=== PATIENT | male | born 1965 | race Caucasian/White ===

== ENCOUNTER 2018-07-21 07:43 | Inpatient (IN) ==
[2018-07-21] MEDS ORDERED: MORPHINE IV ONE (08:01)
[2018-07-21] MEDS ORDERED: ZOFRAN IV ONE (08:02)
--- NOTE | 2018-07-21 08:08 | PROVIDER DOCUMENTATION ---
HPI-Syncope/Dizziness - General Chief Complaint: Syncope Stated Complaint: SYNCOPE, HIGH BP, LIGHTHEADED Time Seen by Provider: 07/21/18 07:53 Allergies/Adverse Reactions: Patient Allergies Allergy/AdvReac Type Severity Reaction Status Date / Time No Known Allergies Allergy Verified 07/21/18 08:08 Home Medications: Home Medication List Medication Instructions Recorded Confirmed Last Taken Type ATORVAstatin [Lipitor] 40 mg PO DAILY 10/26/14 10/26/14 Unknown History Lisinopril 20 mg PO DAILY 10/26/14 07/21/18 Unknown History Sitagliptin Phos/Metformin HCl 1 tab PO BID 10/26/14 10/26/14 Unknown History [Janumet 50-500 mg Tablet] Dapagliflozin Propanediol [Farxiga] 10 mg PO DAILY 07/21/18 07/21/18 Unknown History Insulin Glargine/Lixisenatide 50 units SQ DAILY 07/21/18 07/21/18 Unknown History [Soliqua 100 Unit-33 Mcg/ml Pen] Omeprazole 40 mg PO DAILY 07/21/18 07/21/18 Unknown History Paroxetine [Paxil] 20 mg PO DAILY 07/21/18 07/21/18 Unknown History ROSUVAstatin [Crestor] 20 mg PO QHS 07/21/18 07/21/18 Unknown History Sildenafil [Revatio] 20 mg PO PRN PRN 07/21/18 07/21/18 Unknown History Tamsulosin [Flomax] 0.4 mg PO DAILY 07/21/18 07/21/18 Unknown History Ticagrelor [Brilinta] 90 mg PO BID 07/21/18 07/21/18 Unknown History - History of Present Illness-Syncope/Dizzy Nature of Presenting Problem: Patient reports losing consciousness, falling and hitting the right side of his abd and chest against his sink. States he has some left arm tingling, but no numbness or weakness. States that he's had the arm tingling on and off since yesterday. Denies any current chest pain, shortness of breath or weakness. Complains of right rib and flank pain. Prior Episodes: reports: no prior history Context: reports: unknown, lost consciousness, collapsed Similar symptoms previously: reports: tests (recent cath with mild CAD amenable to medical management per ) - Dizziness Modifying Factors: improves with: changing position Patient usually:: reports: walks without assistance Review of Systems - Adult - REVIEW OF SYSTEMS - ADULT Constitutional: reports: no symptoms reported Eyes: reports: no symptoms reported Ears, Nose, Mouth & Throat: reports: no symptoms reported Cardiovascular: reports: see HPI Respiratory: reports: no symptoms reported Gastrointestinal: reports: no symptoms reported Genitourinary: reports: no symptoms reported Musculoskeletal: reports: see HPI Integumentary: reports: no symptoms reported Neurological: reports: see HPI Psychiatric: reports: no symptoms reported Endocrine: reports: no symptoms reported Hematologic/Lymphatic: reports: no symptoms reported Allergic/Immunologic: reports: no symptoms reported All Other Systems: Reviewed and Negative Past History - Adult - PAST MEDICAL HISTORY-ADULT Review of Records: reports: Old Records Reviewed Major Childhood Illnesses: reports: denies history Cardiovascular: reports: HTN, hyperlipidemia Endocrine/Immune: reports: Diabetes - PRIOR SURGERIES/PROCEDURES Surgical/Procedure History: reports: tonsillectomy, back/neck - IMMUNIZATION STATUS Childhood Immunizations: See Nurse Assessment Flu Vaccine: See Nurse Assessment Physical Exam-General - PHYSICAL EXAM-ADULT Initial Vital Signs Reviewed: Yes - CONSTITUTIONAL General Appearance: mild distress (due to chest wall pain) - EYES Eyes: PERRL/EOMI, pink conjunctivae - HEAD, EARS, NOSE, MOUTH & THROAT HENMT: normocephalic/atraumatic, moist mucous membranes, normal ENT inspection - NECK Neck: non-tender, full range of motion - RESPIRATORY Respiratory: lungs clear, normal breath sounds, no respiratory distress, pain on inspiration (right chest wal), other (right lower chest wall tenderness). negative: chest non-tender - CARDIOVASCULAR Cardiovascular: normal peripheral pulses, regular rate, rhythm, no edema - GASTROINTESTINAL (ABDOMEN) Abdominal Exam: normal bowel sounds, tenderness (RUQ). 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 as tested, grossly normal, no motor/sensory deficits, abnormal cerebellar tests, abnormal plant protection superintendent II-XII - PSYCHIATRIC Psych/Mental Status: normal mood/affect, normal thought content, normal thought process, oriented x 3 Progress - PLAN OF CARE/RESULTS Progress/Plan/Lab Results: Vital Signs - 8 hr 07/21/18 07:46 07/21/18 07:59 07/21/18 08:00 Temperature 98.6 F Pulse Rate 89 80 72 Respiratory Rate 20 18 24 Blood Pressure 140/96 144/105 O2 Sat by Pulse Oximetry 92 L 99 100 07/21/18 08:40 Temperature Pulse Rate 75 Respiratory Rate 17 Blood Pressure O2 Sat by Pulse Oximetry 95 Laboratory Results - last 24 hr 07/21/18 07/21/18 07/21/18 08:02 08:04 08:04 WBC 8.26 RBC 5.71 Hgb 16.9 Hct 47.7 MCV 83.5 MCH 29.6 MCHC 35.4 RDW Std Deviation 13.2 Plt Count 205 MPV 9.8 Immature Gran % (Auto) 0.2 Neut % (Auto) 71.6 Lymph % (Auto) 15.6 L [place] % (Auto) 9.9 H Eos % (Auto) 2.5 Baso % (Auto) 0.2 Immature Gran # (Auto) 0.02 Neut # (Auto) 5.90 Lymph # (Auto) 1.29 [place] # (Auto) 0.82 H Eos # (Auto) 0.21 Baso # (Auto) 0.02 PT INR PTT (Actin FS) Sodium 138 Potassium 4.2 Chloride 100 Carbon Dioxide 24 L Anion Gap 14 BUN 19 Creatinine 1.1 Estimated GFR/1.73 m2 > 60 BUN/Creatinine Ratio 17 Glucose 191 H POC Glucose 185 H Calculated Osmolality 283 Calcium 9.0 Total Bilirubin 0.49 AST 25 ALT 19 Alkaline Phosphatase 95 Creatine Kinase 155 Troponin T Total Protein 6.9 Albumin 4.7 Globulin 2.2 Albumin/Globulin Ratio 2.1 Urine Source Urine Color Urine Turbidity Urine pH Ur Specific [place] Urine Protein Ur Glucose (Stick) Ur Ketones (Stick) Urine Blood Urine Nitrite Urine Bilirubin Urobilinogen Dipstick Urine Leukocytes Urine WBC (Auto) Urine RBC (Auto) U Epithel Cells (Auto) Urine Bacteria (Auto) 07/21/18 07/21/18 07/21/18 08:04 08:04 08:38 WBC RBC Hgb Hct MCV MCH MCHC RDW Std Deviation Plt Count MPV Immature Gran % (Auto) Neut % (Auto) Lymph % (Auto) [place] % (Auto) Eos % (Auto) Baso % (Auto) Immature Gran # (Auto) Neut # (Auto) Lymph # (Auto) [place] # (Auto) Eos # (Auto) Baso # (Auto) PT 13.4 INR 0.95 PTT (Actin FS) 26.9 Sodium Potassium Chloride Carbon Dioxide Anion Gap BUN Creatinine Estimated GFR/1.73 m2 BUN/Creatinine Ratio Glucose POC Glucose Calculated Osmolality Calcium Total Bilirubin AST ALT Alkaline Phosphatase Creatine Kinase Troponin T 0.216 H Total Protein Albumin Globulin Albumin/Globulin Ratio Urine Source CLEAN CATCH Urine Color YELLOW Urine Turbidity CLEAR Urine pH 7.0 Ur Specific [place] 1.017 Urine Protein NEGATIVE Ur Glucose (Stick) >1000 A Ur Ketones (Stick) 10 A Urine Blood NEGATIVE Urine Nitrite NEGATIVE Urine Bilirubin NEGATIVE Urobilinogen Dipstick NORMAL Urine Leukocytes NEGATIVE Urine WBC (Auto) <10 Urine RBC (Auto) <10 U Epithel Cells (Auto) <10 Urine Bacteria (Auto) NEGATIVE Orders Category Date Time Status CHEST-2 VIEWS [RAD] Stat Exams 07/21/18 08:[address] HEAD/C-SPINE W/O CONTRAST [CT] Stat Exams 07/21/18 08:[address] THORAX/ABD/PELVIS W/CON [CT] Stat Exams 07/21/18 08:31 Completed CBC WITH ELECTRONIC DIFF [HEME] Stat Lab 07/21/18 08:04 Completed CK PROFILE [SP CHEM] Stat Lab 07/21/18 08:04 Completed COMPREHENSIVE METABOLIC PANEL [CHEM] Stat Lab 07/21/18 08:04 Completed PROTIME WITH INR [COAG] Stat Lab 07/21/18 08:04 Completed PTT [COAG] Stat Lab 07/21/18 08:04 Completed TROPONIN T Stat Lab 07/21/18 08:04 Completed URINALYSIS W/POSS RFLX CULT [URINALYSIS] Stat Lab 07/21/18 08:38 Completed Aspirin Med 07/21/18 10:05 Discontinued 325 mg PO NOW ONE Morphine Med 07/21/18 08:01 Discontinued 4 mg IV NOW ONE Ondansetron [Zofran] Med 07/21/18 08:02 Discontinued 4 mg IV NOW ONE Result Diagrams: 07/21/18 08:04 07/21/18 08:04 - REASSESSMENT Reassessment #1 Time Reassessed: 10:17 Status: improving - EKG 1 Time of EKG reading by physician:: 08:08 EKG Interpretation (*Must complete 3 of following elements*): Normal Rate: 70 Rhythm: SR ST Wave: normal Prior EKG Comparison: unchanged from prior (06/07/2017) - CONSULTS/PCP/HOSPITALIST Notification Time Discussed: 10:00 (Discussed with cardiology and with hospitalist with plan for hospitalist admission) Consult Disposition: Admit (Discussed with patient and family option of admission here or transfer to [place]. They preferred to remain here.) Departure - Departure Date of Disposition Decision: 07/21/18 Time of Disposition Decision: 10:24 DIAGNOSIS: Syncope and collapse, Elevated troponin Disposition: ADMITTED INPATIENT 09 Certified Medical Emergency: Emergent Condition: Serious Referrals and Follow-Ups: None,PCP [NON-STAFF PROVIDER] - - Critical Care Note This patient required my direct & personal management of CC.: Yes Total Time (mins): 31 Critical Care Statement: This patient required my direct personal management to treat or rule out processes, the absence of which, could potentiallly result in sudden, clinically significant life or limb threatening deterioration. Attestation - Physician/ LALITA Attestation Patient care was provided by Advanced Practice Provider:: No The physician spent face to face time with patient:: Yes Advanced Practice Provider documentation review:: Supervising physician onsite and consulted in the evaluation and care of this patient. The physician did have a face to face encounter with the patient.
[2018-07-21 08:19] LABS: BASO# 0.02 X1000 (0.0-0.2); BASO% 0.2 % (0.0-0.8); EOS# 0.21 X1000 (0.0-0.7); EOS% 2.5 % (0.0-10.0); HEMATOCRIT 47.7 % (42.0-52.0); HEMOGLOBIN 16.9 g/dL (14.0-18.0); IMM GRAN# 0.02 X1000 (0.0-0.04); IMM GRAN% 0.2 % (0.0-0.5); LYMPH# 1.29 X1000 (1.2-3.4); LYMPH% 15.6 % (20.5-51.1); MCH 29.6 PG (27-31); MCHC 35.4 g/dL (33-37); MCV 83.5 FL (81-99); MONO# 0.82 X1000 (0.11-0.59); MONO% 9.9 % (1.7-9.3); MPV 9.8 FL (7.4-10.4); NEUT% 71.6 % (42.2-75.2); PLT 205 X1000 (130-400); RBC 5.71 XMIL (4.7-6.1); RDW 13.2 % (11.5-14.5); WBC 8.26 X1000 (4.8-10.8)
[2018-07-21 08:26] LABS: INR 0.95; PROTIME 13.4 Seconds (11.0-16.0)
[2018-07-21 08:27] LABS: PTT 26.9 Seconds (22.3-41.8)
[2018-07-21 08:38] LABS: AGAP 14; ALB/GLOB RATIO 2.1; ALBUMIN 4.7 g/dL (3.5-5.0); ALKALINE PHOSPHATASE 95 U/L (32-122); BUN 19 mg/dL (8-22); CHLORIDE 100 mmol/L (98-107); CK PROFILE 155 U/L (24-204); COSMO 283; CREATININE 1.1 mg/dL (0.7-1.2); ESTIMATED GFR > 60; GLUCOSE 191 mg/dL (70-104); GOT 25 U/L (10-34); GPT 19 U/L (10-44); POTASSIUM 4.2 mmol/L (3.5-5.1); SODIUM 138 mmol/L (136-145); TCO2 24 mmol/L (25-35); TOTAL BILIRUBIN 0.49 mg/dL (0.20-1.00); TOTAL PROTEIN 6.9 g/dL (6.3-8.3)
[2018-07-21 08:48] LABS: URINE SOURCE CLEAN CATCH
[2018-07-21 08:52] LABS: BILIRUBIN URINE NEGATIVE (NEGATIVE); BLOOD URINE NEGATIVE (NEGATIVE); COLOR YELLOW; GLUCOSE URINE >1000 mg/dL (NEGATIVE); KETONE URINE 10 mg/dL (NEGATIVE); LEUKOCYTES URINE NEGATIVE (NEGATIVE); NITRITE URINE NEGATIVE (NEGATIVE); PROTEIN URINE NEGATIVE (NEGATIVE); SP GRAVITY URINE 1.017; TURBIDITY URINE CLEAR (CLEAR); UR EPITHELIAL CELLS <10 /HPF (<10); URINE BACTERIA NEGATIVE /HPF; URINE RBC <10 /HPF (<10); URINE WBC <10 /HPF (<10); UROBILINOGEN URINE NORMAL (NORMAL)
--- NOTE | 2018-07-21 09:28 | Diag Imaging Result Doc PS360 ---
EXAM: CT HEAD/C-SPINE W/O CONTRAST - 07/21/2018 HISTORY: fall TECHNIQUE: CT head and cervical spine without contrast COMPARISON: None. FINDINGS: CT head: There is no evidence of intracranial hemorrhage, mass effect, midline shift, or hydrocephalus. There is no evidence of infarct, although acute infarcts may not be immediately visible. There is no evidence of skull fracture. CT cervical spine: There are postsurgical changes of anterior fusion, with metallic fusion hardware, and C5-C6-C7. There is posterior bony hypertrophy with mild spinal stenosis at C5-6 and C6-7. There are degenerative changes with large anterior osteophytes at C4-5. There are degenerative changes at the atlantoaxial articulation. There is no fracture, subluxation, or precervical soft tissue swelling identified. IMPRESSION: CT head: No visible acute intracranial abnormality. No evidence of intracranial injury. CT cervical spine: Postsurgical changes and degenerative changes. No evidence of fracture or subluxation. This exam was performed using automated exposure control, adjustment of mA or kV according to patient size, and/or use of iterative reconstruction technique. Electronically signed by Jovany Boogie 07/21/2018 9:26 AM
--- NOTE | 2018-07-21 09:39 | Diag Imaging Result Doc PS360 ---
EXAM: CHEST-2 VIEWS 07/21/2018 HISTORY: short of breath TECHNIQUE: PA and lateral chest COMMENT: The inspiration is less optimal than on 10/26/2014. Otherwise are has been no appreciable change. IMPRESSION: Stable chest. Electronically signed by Jamari Reyes 07/21/2018 9:37 AM
--- NOTE | 2018-07-21 09:39 | Diag Imaging Result Doc PS360 ---
CT THORAX/ABD/PELVIS W/CON - 07/21/2018 INDICATION: blunt trauma COMPARISON: 12/31/2010 FINDINGS: CHEST: Heart and great vessels are normal. The lungs are clear. No adenopathy. There is moderate degeneration throughout the thoracic spine. No acute bony lesions. Abdomen pelvis: The liver, gallbladder, spleen, pancreas, adrenals, and kidneys are normal. No bowel obstruction or inflammation. Normal appendix. No free air or free fluid. Urinary bladder, prostate, and rectum are normal. There is moderate degeneration of the lumbar spine. No acute bony lesions. IMPRESSION: No acute injury. This exam was performed using automated exposure control, adjustment of mA or kV according to patient size, and/or use of iterative reconstruction technique Electronically signed by Edgar Caro 07/21/2018 9:37 AM
[2018-07-21] MEDS ORDERED: ASPIRIN PO ONE (10:05)
[2018-07-21] MEDS ORDERED: HUMALOG SUBQ SCH (11:21)
[2018-07-21] MEDS ORDERED: TYLENOL PO PRN (11:21)
[2018-07-21] MEDS ORDERED: ZOFRAN IV PRN (11:21)
--- NOTE | 2018-07-21 11:39 | EKG Report ---
Test Performed on : 07/21/2018 07:55:14 AM Test Reason : ED. No order in [place] Blood Pressure : / mmHG Vent. Rate : 070 BPM Atrial Rate : 070 BPM P-R Int : 150 ms QRS Dur : 080 ms QT Int : 376 ms P-R-T Axes : 031 066 048 degrees QTc Int : 406 ms Normal sinus rhythm. Normal ECG No previous ECGs available Unconfirmed Result
[2018-07-21] MEDS ORDERED: PRINIVIL PO SCH (12:15)
[2018-07-21] MEDS ORDERED: LOVENOX SUBQ SCH (12:15)
[2018-07-21] MEDS ORDERED: CRESTOR PO SCH (12:15)
--- NOTE | 2018-07-21 13:10 | HISTORY AND PHYSICAL ---
[id number] encounter. HISTORY OF PRESENT ILLNESS: Mr. Eugenio Servin is a 52-year-old male who has a history of hypertension, diabetes mellitus, hyperlipidemia as well as a family history of heart disease. Presents to the hospital because of a syncopal episode which occurred prior to presentation and he ended of having blunt trauma to the right side of his trunk. He also describes having numbness in the left upper extremity. During evaluation in the ER, he was found to have a troponin level of 0.216. The patient admits to having history of a coronary lesion of at least 70% blockage in the past. PHYSICAL EXAMINATION: VITAL SIGNS: Temperature 98.6 degrees, pulse is 89, respiratory rate 20, blood pressure 143/96. Oxygen saturation 92%. HEENT: Atraumatic, normocephalic. He is anicteric. Extraocular movements intact. No oral lesions noted. NECK: No lymphadenopathy or thyromegaly. CARDIOVASCULAR SYSTEM: S1, S2. RESPIRATORY SYSTEM: Has evidence of good air entry bilaterally. ABDOMEN: Soft. There is some vague tenderness lower right portion of the abdomen. EXTREMITIES: No evidence of edema. CENTRAL NERVOUS SYSTEM: No obvious focal deficit noted. LABORATORY DATA: Troponin is 0.216. IMPRESSION: 1. Probable non ST elevation myocardial infarction. 2. Syncope. 3. Diabetes. 4. Hypertension. 5. Hyperlipidemia. 6. Family history of heart disease. PLAN: The patient has already been evaluated by the Cardiology Team and the plan is to have the patient transferred to [facility] for further management. cc: Cleve Ruiz MD
--- NOTE | 2018-07-21 13:17 | HISTORY AND PHYSICAL ---
PRIMARY CARE PROVIDER: Marcia MACEDO, in [place]. ROPE TOW OPERATOR: Dr. Phillips in [place]. CHIEF COMPLAINT: Passed out after urinating. HISTORY OF PRESENT ILLNESS: Mr. Servin is a 52-year-old, male who carries a past medical history of hypertension, hyperlipidemia, diabetes mellitus, GERD, situational depression, BPH, coronary artery disease, on Brilinta since August 2016 after he had an arteriogram that showed some mild blockage per their report at the bottom of the heart, low testosterone. He takes testosterone shots every 2 weeks. He reported a syncopal episode this a.m. He got up to urinate and after he was done, when he spun around, he became fuzzy-headed. His head started buzzing. He went to reach for the counter and missed. He states everything went black. He never lost full consciousness. The dizziness lasted for about 10 or 15 minutes. He got up, went to the couch, and did not move. He became short of breath as well as profusely diaphoretic after the episode. He complained of left arm tingling intermittently since yesterday, as well as feeling "cold as ice and feeling cruddy". He also complained of bilateral jaw tightness that he was having yesterday as well as today in the ED, but this has been ongoing for quite some time as well. He also had some neck pain that radiated down to his left arm last night. He denied any chest pain. He states he has never had a heart attack before so he could not describe it. He states he always aches all over. He denied any nausea, vomiting, diarrhea, fever, chills, cough. He does have some seasonal allergies. In the ED, he was found to have an elevated troponin at 0.216, and hyperglycemia. All other laboratory data was essentially unremarkable. We are waiting for repeat troponins. His chest, abdomen, pelvis, head, and cervical spine CT, as well as chest x-ray were all unremarkable. His EKG is currently pending. We will admit him to medical telemetry. Consult cardiology. They are going to set him up for a left heart catheterization. PAST MEDICAL HISTORY: 1. Hypertension. 2. Diabetes. 3. Hyperlipidemia. 4. Benign prostatic hypertrophy. 5. Low testosterone. 6. Situational depression. 7. GERD. PAST SURGICAL HISTORY: 1. Neck surgery in 2011. 2. Arteriogram in August 2016. 3. Tonsillectomy in the first grade. 4. metal taken out of thumb. FAMILY HISTORY: 1. Father had 4 MIs. He at the age of 82 from lung cancer. 2. A sister with 3 MIs who at the age of 43 of an unknown cause. 3. Mother of a massive [place] in her 80s. 4. Brother had 1 [place]. He of cancer, some type of tumor in his back that spread everywhere. 5. Sister with YO. SOCIAL HISTORY: He is . No alcohol, tobacco, or illicit drug use. ALLERGIES: No known drug allergies. HOME MEDICATIONS: Please see medication reconciliation. Not all medications have been reconciled. PHYSICAL EXAMINATION: VITAL SIGNS: Temperature is 98.6 degrees, heart rate 80, respirations 18, blood pressure 144/105, O2 is 100% on 2 L nasal cannula. GENERAL: Mr. Servin is a pleasant, 52-year-old, male who is sitting up in the bed, in no acute distress. HEENT: Atraumatic, normocephalic. PERRL. NECK: Supple. Trachea midline. CARDIOVASCULAR: S1, S2 appreciated. No murmurs, gallops, rubs noted. RESPIRATORY: Lungs sound clear bilaterally. GI: Soft. It is tender in the rib area on the right side. Positive bowel sounds in 4 quadrants. EXTREMITIES: Lower extremities are negative for edema. No signs of clubbing or cyanosis. NEUROLOGIC: No focal deficits noted. DIAGNOSTIC DATA: 1. Chest, abdomen, and pelvis. No acute injury. 2. Head and cervical spine. No visible acute intracranial pathology or injury. Cervical spine has postsurgical changes and degenerative changes. No evidence of fracture or subluxation. 3. Chest CT stable. 4. EKG was currently pending. 5. Pending carotid Dopplers and echocardiogram. LABORATORY DATA: White count 8, hemoglobin and hematocrit 16 and 47, platelet count is 205,000. Sodium 138, potassium 4.2, BUN 19, creatinine 1.1, blood glucose is 191. CK 155, troponin 0.216. Urinalysis was negative for bacteria, negative for nitrites, 1000 glucose, 10 ketones. ASSESSMENT AND PLAN: 1. Non-ST elevated myocardial infarction. We will continue to trend his cardiac enzymes. Consult Dr. Howard of cardiology. Continue to trend his cardiac enzymes. We will check a lipid profile. Make him nothing per oral after midnight. Cardiology will set him up for a left heart catheterization in the morning. Continue on anticoagulation. We will converse with Dr. Howard to see if he wants to continue on the Brilinta or just do the aspirin. We will continue on a statin. Brilinta or aspirin versus full-dose Lovenox. 2. Syncopal episode at home. Patient's vision went dark. He did not ever lose any full consciousness. He was still aware of his surroundings. We will check a carotid Doppler. His head CT is currently negative. 3. Diabetes mellitus type 2. We will continue with sliding scale and pattern blood sugars. 4. Hypertension. We will continue with home medications. 5. Gastroesophageal reflux disease. We will continue with proton pump inhibitor. 6. Situational depression. We will continue with Paxil. 7. Benign prostatic hypertrophy. We will continue with Flomax. 8. Low testosterone. Patient does take testosterone shots over 2 weeks. Aware. 9. Further recommendation to follow physician evaluation, laboratory and diagnostic data. Dictated by HELLEN Peng for Cleve Ruiz MD ADDENDUM: Cards in to see patient after I request for ED Physician to contact cardiology and notify of patient. Cards recommendations HH transfer for [facility]. cc: MD Roberto Mejia MD Ashley Drake Mir K. Varquez, MD MTDD
[2018-07-21 13:38] LABS: CHOLESTEROL 103 mg/dL (0-200); HDL 33 mg/dL (35-55); LDL 57 mg/dL; TRIGLYCERIDES 67 mg/dL (39-160); VLDL 13 mg/dL
[2018-07-21 14:39] VITALS: BP 123/78
[2018-07-21] MEDS ORDERED: LIPITOR PO SCH (21:00)
--- NOTE | 2018-07-21 22:55 | ECHO REPORT ---
ORDER DATE: 07/21/2018 MEASUREMENTS: Septal thickness 1.4, left ventricular internal diameter diastole 3.6, posterior wall thickness 1.4, aortic root 4.4, left atrium 3.1. SUMMARY: 1. Fair quality study. 2. Aortic valve is trileaflet and opens normally on 2-dimensional images. Peak gradient across the aortic valve is approximately 14 mmHg. Mitral, tricuspid and pulmonic valves are without evidence of structural abnormality. Trace tricuspid regurgitation is demonstrated. Aortic root is mildly to moderately enlarged. 3. Normal left ventricular chamber size with moderate concentric left hypertrophy is demonstrated. Estimated left ejection fraction appears to be at least 70% with left ventricle appearing somewhat hyperdynamic. No regional wall motion abnormality is evident. Doppler demonstrates a mild gradient of approximately 10 mm in mid left ventricle during systole. With Valsalva, this increases to 46 mmHg. Doppler also demonstrates grade 1 left ventricular diastolic dysfunction. The left atrium is normal in size. The right atrium and right ventricle are normal size with grossly preserved right ventricular systolic function. 4. No pericardial effusion. 5. Appearance of inferior vena cava suggests normal central venous pressure. CONCLUSIONS: 1. Mild to moderate aortic root enlargement. 2. Moderate concentric left ventricular hypertrophy with left ventricle somewhat hyperdynamic with estimated left ejection fraction at least 70%. 3. Dynamic left ventricular outflow tract obstruction physiology demonstrated. 4. Grade 1 left ventricular diastolic dysfunction. cc: Prem Batista MD
[2018-07-22] MEDS ORDERED: ASPIRIN PO SCH (09:00)
--- NOTE | 2018-07-22 10:34 | Carotid Study ---
DATE: 07/21/2018 PROCEDURE: Bilateral carotid duplex. REQUESTING PHYSICIAN: Norberto Pride MD INTERPRETING PHYSICIAN: Phylicia Russell MD TECH: Benson Gold [facility] INDICATIONS: Syncope. OBSERVED DATA RIGHT LEFT Brachial Blood Pressure Carotid Pulse Bruits: Carotid/Sub DIAGRAM OF ULTRASOUND IMAGING R L RIGHT INT EXT INT EXT LEFT Júnior (cm/s) Júnior (cm/s) Subclavian 83/0 Subclavian 95/0 CCA Proximal 63/12 CCA Proximal 82/13 CCA Distal 51/15 CCA Distal 67/14 Bulb 51/14 Bulb 47/13 ICA Proximal 28/12 ICA Proximal 51/17 ICA Mid 54/22 ICA Mid 72/28 ICA Distal 59/23 ICA Distal 76/28 ECA 104/15 ECA 120/20 Vertebral 27/9 A Vertebral 44/15 A ICA/CCA Ratio 0.93 ICA/CCA Ratio 0.93 % Stenosis 0%-39% % Stenosis 0%-39% FINDINGS: No significant atherosclerotic change is noted in the bilateral carotid artery system. Overall normal appearing study. cc: Phylicia Russell MD
== END 2018-07-21 14:37 | disposition short-term general hospital (02) | DRG 282 ==
LOC: ED 07:43 → EDIPHOLD 07:44 → UNDODISIN 14:31 → EDIPHOLD 14:36
PROVIDERS: ATTEND Internal Medicine
CPT/HCPCS: 70450; 71020; 71046; 71260; 72125; 74177; 80053; 80061; 81001; 82550; 82948; 84484; 85025; 85610; 85730; 93005; 93306; 93880; A9270; J1650; J2270; J2405; Q9967; XXXXX

== ENCOUNTER 2018-10-26 13:50 | Observation (INO) ==
[2018-10-26] MEDS ORDERED: ASPIRIN PR ONE (14:00)
[2018-10-26] MEDS ORDERED: ASPIRIN PO ONE (14:00)
--- NOTE | 2018-10-26 14:06 | EKG Report ---
Test Performed on : 10/26/2018 2:01:10 PM Test Reason : SMOTHERING Blood Pressure : / mmHG Vent. Rate : 086 BPM Atrial Rate : 086 BPM P-R Int : 144 ms QRS Dur : 088 ms QT Int : 364 ms P-R-T Axes : 028 064 046 degrees QTc Int : 435 ms Normal sinus rhythm. Normal ECG When compared with ECG of 21-JUL-2018 07:55, No significant change was found Unconfirmed Result
[2018-10-26 14:22] LABS: BASO# 0.04 X1000 (0.0-0.2); BASO% 0.6 % (0.0-0.8); EOS# 0.38 X1000 (0.0-0.7); EOS% 5.8 % (0.0-10.0); HEMATOCRIT 46.7 % (42.0-52.0); HEMOGLOBIN 16.8 g/dL (14.0-18.0); LYMPH# 1.68 X1000 (1.2-3.4); LYMPH% 25.6 % (20.5-51.1); MCH 29.9 PG (27-31); MCV 83.2 FL (81-99); MONO# 0.81 X1000 (0.11-0.59); MONO% 12.3 % (1.7-9.3); MPV 10.1 FL (7.4-10.4); NEUT# 3.65 X1000 (1.4-6.5); NEUT% 55.7 % (42.2-75.2); PLT 176 X1000 (130-400); RBC 5.61 XMIL (4.7-6.1); RDW 13.9 % (11.5-14.5); WBC 6.56 X1000 (4.8-10.8)
--- NOTE | 2018-10-26 14:23 | Diag Imaging Result Doc PS360 ---
EXAM: CHEST-2 VIEWS 10/26/2018 HISTORY: "SMOTHERING" TECHNIQUE: PA and lateral chest COMMENT: There is no evidence of acute cardiac or pulmonary disease. Compared to 07/21/2018 there has been no significant change. IMPRESSION: No evidence of acute disease. Electronically signed by Jamari Reyes 10/26/2018 2:21 PM
[2018-10-26 14:41] LABS: INR 1.08; PROTIME 14.1 Seconds (11.0-16.0)
[2018-10-26 14:42] LABS: PTT 29.3 Seconds (22.3-41.8)
[2018-10-26 14:51] LABS: AGAP 15; ALB/GLOB RATIO 2.5; ALBUMIN 4.8 g/dL (3.5-5.0); ALKALINE PHOSPHATASE 76 U/L (32-122); BUN 15 mg/dL (8-22); CALCIUM 9.2 mg/dL (8.8-10.2); CHLORIDE 98 mmol/L (98-107); CK PROFILE 176 U/L (24-204); COSMO 268; ESTIMATED GFR > 60; GLUCOSE 154 mg/dL (70-104); GOT 20 U/L (10-34); GPT 23 U/L (10-44); POTASSIUM 4.1 mmol/L (3.5-5.1); SODIUM 132 mmol/L (136-145); TCO2 19 mmol/L (25-35); TOTAL BILIRUBIN 0.55 mg/dL (0.20-1.00); TOTAL PROTEIN 6.7 g/dL (6.3-8.3)
[2018-10-26 15:34] LABS: MAGNESIUM 1.8 mg/dL (1.5-2.7)
--- NOTE | 2018-10-26 20:11 | PROVIDER DOCUMENTATION ---
HPI-General Adult - General Chief Complaint: Abdominal Pain Stated Complaint: DR BURTON - NO APPETITE, NAUSEA, SOB Time Seen by Provider: 10/26/18 14:36 Source: patient, family Allergies/Adverse Reactions: Patient Allergies Allergy/AdvReac Type Severity Reaction Status Date / Time No Known Allergies Allergy Verified 10/26/18 16:18 Home Medications: Home Medication List Medication Instructions Recorded Confirmed Last Taken Type ATORVAstatin [Lipitor] 40 mg PO DAILY 10/26/14 10/26/14 Unknown History Lisinopril 20 mg PO DAILY 10/26/14 07/21/18 Unknown History Sitagliptin Phos/Metformin HCl 1 tab PO BID 10/26/14 10/26/14 Unknown History [Janumet 50-500 mg Tablet] Dapagliflozin Propanediol [Farxiga] 10 mg PO DAILY 07/21/18 07/21/18 Unknown His tory Insulin Glargine/Lixisenatide 50 units SQ DAILY 07/21/18 07/21/18 Unknown History [Soliqua 100 Unit-33 Mcg/ml Pen] Omeprazole 40 mg PO DAILY 07/21/18 07/21/18 Unknown History Paroxetine [Paxil] 20 mg PO DAILY 07/21/18 07/21/18 Unknown History ROSUVAstatin [Crestor] 20 mg PO QHS 07/21/18 07/21/18 Unknown History Sildenafil [Revatio] 20 mg PO PRN PRN 07/21/18 07/21/18 Unknown History Tamsulosin [Flomax] 0.4 mg PO DAILY 07/21/18 07/21/18 Unknown History Ticagrelor [Brilinta] 90 mg PO BID 07/21/18 07/21/18 Unknown History - History of Present Illness -Gen Adult Nature of Presenting Problems: This is a 52 yo male with PMH of [place] in July presents with CC of upper abominal pain and chest pain similar to previous [place]. The patient reports that yesterday he was light headed and had some blurred vision. The patient also reports that today he felt nauseated and felt pain in his left upper abdomen and chest that was the same as his previous [place]. Location of Pain/Injury: reports: chest, abdomen Pain Radiation: reports: chest Quality of Pain: reports: pressure Onset/Duration: reports: 24 hours ago Timing: reports: still present Context/Activities at Onset: reports: other (worse with walking around) Review of Systems - Adult - REVIEW OF SYSTEMS - ADULT Constitutional: denies: fever Eyes: reports: blurred vision Ears, Nose, Mouth & Throat: denies: throat pain Cardiovascular: reports: chest pain Respiratory: denies: shortness of breath Gastrointestinal: reports: abdominal pain Genitourinary: denies: dysuria Musculoskeletal: denies: back pain Neurological: reports: headache/migraines Hematologic/Lymphatic: reports: other (bruise on arm with some bleeding) Allergic/Immunologic: reports: other (no allergies) Past History - Adult - PAST MEDICAL HISTORY-ADULT Review of Records: reports: Old Records Reviewed Major Childhood Illnesses: reports: denies history Cardiovascular: reports: HTN, hyperlipidemia Endocrine/Immune: reports: Diabetes - PRIOR SURGERIES/PROCEDURES Surgical/Procedure History: reports: tonsillectomy, back/neck - IMMUNIZATION STATUS Childhood Immunizations: See Nurse Assessment Flu Vaccine: See Nurse Assessment - FAMILY HISTORY Family History: diabetes, cancer, other (CAD) - SOCIAL HISTORY Smoking: chew Physical Exam-General - PHYSICAL EXAM-ADULT Exam Limited by: Obesity Initial Vital Signs Reviewed: Yes - CONSTITUTIONAL General Appearance: appears well, alert, no apparent distress - HEAD, EARS, NOSE, MOUTH & THROAT HENMT: normocephalic/atraumatic - RESPIRATORY Respiratory: chest non-tender, other (Left Lung clear, very slight rales noted in the RLL) - CARDIOVASCULAR Cardiovascular: regular rate, rhythm, no edema - GASTROINTESTINAL (ABDOMEN) Abdominal Exam: distended, guarding, tenderness - SKIN Integumentary: normal color - NEUROLOGIC Neurologic: grossly normal - PSYCHIATRIC Psych/Mental Status: normal mood/affect Progress - PLAN OF CARE/RESULTS Progress/Plan/Lab Results: Vital Signs - 8 hr 10/26/18 13:53 10/26/18 16:17 Temperature 97.5 F L 98.2 F Pulse Rate 92 H 99 H Respiratory Rate 18 18 Blood Pressure 125/84 114/75 O2 Sat by Pulse Oximetry 95 96 Laboratory Results - last 24 hr 10/26/18 10/26/18 10/26/18 14:04 14:04 14:04 WBC 6.56 RBC 5.61 Hgb 16.8 Hct 46.7 MCV 83.2 MCH 29.9 MCHC 36.0 RDW Std Deviation 13.9 Plt Count 176 MPV 10.1 Immature Gran % (Auto) 0.0 Neut % (Auto) 55.7 Lymph % (Auto) 25.6 [place] % (Auto) 12.3 H Eos % (Auto) 5.8 Baso % (Auto) 0.6 Immature Gran # (Auto) 0.00 Neut # (Auto) 3.65 Lymph # (Auto) 1.68 [place] # (Auto) 0.81 H Eos # (Auto) 0.38 Baso # (Auto) 0.04 PT INR PTT (Actin FS) Sodium 132 L Potassium 4.1 Chloride 98 Carbon Dioxide 19 L Anion Gap 15 BUN 15 Creatinine 1.0 Estimated GFR/1.73 m2 > 60 BUN/Creatinine Ratio 15 Glucose 154 H Calculated Osmolality 268 Calcium 9.2 Magnesium Total Bilirubin 0.55 AST 20 ALT 23 Alkaline Phosphatase 76 Creatine Kinase 176 Troponin T [id number] Pept 6 Total Protein 6.7 Albumin 4.8 Globulin 1.9 Albumin/Globulin Ratio 2.5 Amylase Lipase 10/26/18 10/26/18 10/26/18 14:04 14:04 14:04 WBC RBC Hgb Hct MCV MCH MCHC RDW Std Deviation Plt Count MPV Immature Gran % (Auto) Neut % (Auto) Lymph % (Auto) [place] % (Auto) Eos % (Auto) Baso % (Auto) Immature Gran # (Auto) Neut # (Auto) Lymph # (Auto) [place] # (Auto) Eos # (Auto) Baso # (Auto) PT 14.1 INR 1.08 PTT (Actin FS) 29.3 Sodium Potassium Chloride Carbon Dioxide Anion Gap BUN Creatinine Estimated GFR/1.73 m2 BUN/Creatinine Ratio Glucose Calculated Osmolality Calcium Magnesium 1.8 Total Bilirubin AST ALT Alkaline Phosphatase Creatine Kinase Troponin T < 0.010 Vze-Q-Tgnizgtezkb Pept Total Protein Albumin Globulin Albumin/Globulin Ratio Amylase 42 Lipase 46 Orders Category Date Time Status Cardiac Monitoring DIRECTED Care 10/26/18 14:00 Active Oxygen Therapy- ED Nursing DIRECTED Care 10/26/18 14:00 Active Saline Loc NOW Care 10/26/18 14:00 Active CHEST-2 VIEWS [RAD] Stat Exams 10/26/18 14:[address] ABDOMEN/PELVIS W/O CONTRAST [CT] Stat Exams 10/26/18 19:43 Ordered AMYLASE [CHEM] Stat Lab 10/26/18 14:04 Completed CBC WITH ELECTRONIC DIFF [HEME] Stat Lab 10/26/18 14:04 Completed CK PROFILE [SP CHEM] Stat Lab 10/26/18 14:04 Completed COMPREHENSIVE METABOLIC PANEL [CHEM] Stat Lab 10/26/18 14:04 Completed LIPASE [CHEM] Stat Lab 10/26/18 14:04 Completed MAGNESIUM [CHEM] Stat Lab 10/26/18 14:04 Completed PRO B-NATRIURETIC PEPTIDE Stat Lab 10/26/18 14:04 Completed PROTIME WITH INR [COAG] Stat Lab 10/26/18 14:04 Completed PTT [COAG] Stat Lab 10/26/18 14:04 Completed TROPONIN T Stat Lab 10/26/18 14:04 Completed TROPONIN T Stat Lab 10/26/18 19:41 Ordered Aspirin Med 10/26/18 14:00 Discontinued 300 mg MI NOW ONE Aspirin Med 10/26/18 14:00 Discontinued 325 mg PO NOW ONE CP/SOB/Palp >45 yrs of Age Stat Oth 10/26/18 14:00 Ordered EKG [EKG] Stat Ther 10/26/18 14:00 Draft EKG [EKG] Stat Ther 10/26/18 19:41 Ordered Result Diagrams: 10/26/18 14:04 10/26/18 14:04 - REASSESSMENT Reassessment #1 Status: other (Briefly discussed with hospitalist team that we are planning admit for chest pain rule out. Awaiting further communication from hospitalist team. Patient resting comfortably, nitro-paste applied.) Reassessment #2 Status: other (Discussed with front counter attendant and patient is on hospitalist admit list. Still awaiting further discussion with hospitalist team. Patient pain did improve with the nitro paste.) Reassessment #3 Status: other (Dr. Arevalo discussed patient with hospitalist service who are aware of admission.) Departure - Departure Date of Disposition Decision: 10/26/18 Time of Disposition Decision: 22:53 DIAGNOSIS: Chest pain Qualifiers: Chest pain type: unspecified Qualified Code(s): R07.9 - Chest pain, unspecified Abdominal pain Qualifiers: Abdominal location: left upper quadrant Qualified Code(s): R10.12 - Left upper quadrant pain Disposition: ADMITTED INPATIENT 09 Certified Medical Emergency: Emergent Condition: Fair Referrals and Follow-Ups: Jovanna Thomas CRNP [Primary Care Provider] - - Critical Care Note This patient required my direct & personal management of CC.: No Attestation - Physician/ LALITA Attestation Patient care was provided by Advanced Practice Provider:: No The physician spent face to face time with patient:: Yes Advanced Practice Provider documentation review:: Supervising physician onsite and consulted in the evaluation and care of this patient. The physician did have a face to face encounter with the patient.
--- NOTE | 2018-10-26 20:49 | Diag Imaging Result Doc PS360 ---
EXAM: CT ABDOMEN/PELVIS W/O CONTRAST 10/26/2018 HISTORY: LUQ pain/tenderness, nausea TECHNIQUE: This exam was performed using automated exposure control, adjustment of mA or kV according to patient size, and/or use of iterative reconstruction technique. COMMENT: There is no evidence of acute disease in the visualized portion of the chest. There are retained gastric contents. There is a fair amount of stool in the colon without evidence of dilatation. Small bowel is not distended. There is no evidence of nephrolithiasis or hydronephrosis. There are no apparent gallstones. There are no gross abnormalities in the liver or spleen. Pancreas is grossly normal in appearance. The aorta is not distended. The adrenal glands are not enlarged. There are some scattered colonic diverticula. There is no evidence of diverticulitis. The appendix is normal in appearance. There is no evidence of free fluid. The urinary bladder is not distended. There is bilateral spondylolysis at L5. There are severe degenerative disc changes at the L2-3 level. This has worsened since the previous study of 07/21/2018. There is some subsidence of the upper endplate of L2 which has not changed since the previous study. IMPRESSION: Mild constipation. Retained gastric contents of uncertain significance. Possibility of gastroparesis cannot be excluded. By history, the patient has not eaten since 1100. Electronically signed by Jamari Reyes 10/26/2018 8:46 PM
[2018-10-26] MEDS ORDERED: NITROGLYCERIN TOP ONE (21:02)
[2018-10-26] MEDS ORDERED: MYLICON DROPS PO ONE (21:05)
[2018-10-26] MEDS ORDERED: REGLAN IV ONE (23:43)
[2018-10-26] MEDS ORDERED: MORPHINE IV PRN (23:43)
[2018-10-26] MEDS ORDERED: ZOFRAN IV PRN (23:43)
[2018-10-27 00:56] LABS: URINE SOURCE CLEAN CATCH
[2018-10-27 01:02] LABS: BILIRUBIN URINE NEGATIVE (NEGATIVE); BLOOD URINE NEGATIVE (NEGATIVE); COLOR STRAW; GLUCOSE URINE >1000 mg/dL (NEGATIVE); KETONE URINE NEGATIVE (NEGATIVE); LEUKOCYTES URINE NEGATIVE (NEGATIVE); NITRITE URINE NEGATIVE (NEGATIVE); PROTEIN URINE NEGATIVE (NEGATIVE); SP GRAVITY URINE 1.006; TURBIDITY URINE CLEAR (CLEAR); UR EPITHELIAL CELLS <10 /HPF (<10); URINE BACTERIA NEGATIVE /HPF; URINE RBC <10 /HPF (<10); URINE WBC <10 /HPF (<10); UROBILINOGEN URINE NORMAL (NORMAL)
[2018-10-27] MEDS ORDERED: HUMALOG SUBQ ONE (01:02)
--- NOTE | 2018-10-27 14:09 | EKG Report ---
Test Performed on : 10/27/2018 1:49:20 PM Test Reason : chest pain Blood Pressure : / mmHG Vent. Rate : 076 BPM Atrial Rate : 076 BPM P-R Int : 180 ms QRS Dur : 084 ms QT Int : 394 ms P-R-T Axes : 029 064 038 degrees QTc Int : 443 ms Normal sinus rhythm. Possible Left atrial enlargement Borderline ECG When compared with ECG of 26-OCT-2018 14:01, (Unconfirmed) No significant change was found Confirmed by Titus GARCIA, Aiden Maier ([id number]) on 10/27/2018 6:00:29 PM
[2018-10-27] MEDS ORDERED: SEMAGLUTIDE SQ SCH (14:15)
[2018-10-27] MEDS ORDERED: ZANAFLEX PO PRN (14:15)
[2018-10-27] MEDS ORDERED: VALTREX PO PRN (14:15)
[2018-10-27] MEDS ORDERED: REVATIO PO PRN (14:15)
[2018-10-27] MEDS ORDERED: SITAGLIPTIN PHOS PO SCH (14:30)
[2018-10-27] MEDS ORDERED: METFORMIN HCL PO SCH (14:30)
[2018-10-27] MEDS ORDERED: INSULIN PEN NEEDLES ONE (15:48)
[2018-10-27] MEDS: FLOMAX PO SCH (15:54)
[2018-10-27] MEDS: NORVASC PO SCH (15:54)
[2018-10-27] MEDS: PRILOSEC PO SCH (15:54)
[2018-10-27] MEDS: PRINIVIL PO SCH (15:55)
[2018-10-27] MEDS: PAXIL PO SCH (15:55)
[2018-10-27] MEDS: BRILINTA PO SCH ×2 (15:55→20:16)
[2018-10-27] MEDS: GLUCOPHAGE PO SCH ×2 (15:55→18:35)
[2018-10-27] MEDS: JANUVIA PO SCH ×2 (15:55→18:36)
[2018-10-27] MEDS: TOUJEO SOLOSTAR SUBQ SCH (15:56)
[2018-10-27] MEDS ORDERED: DEPO-TESTOSTERONE IM SCH (16:00)
[2018-10-27] MEDS: NON-FORMULARY MED (Dapagliflozin Propanediol [Farxiga] 0 MG) PO SCH (16:02)
[2018-10-27] MEDS: ASPIRIN PO SCH (20:16)
[2018-10-27] MEDS ORDERED: CRESTOR PO SCH (21:00)
--- NOTE | 2018-10-27 21:08 | CARDIOLOGY CONSULTATION ---
DATE: 10/27/2018 CONSULTATION REQUESTED BY: Hospitalist service. REASON FOR CONSULTATION: Patient complaining of increasing dyspnea, abdominal discomfort, chest discomfort. HISTORY: Mr. Servin is a 52-year-old male who was in his usual state of health up until yesterday, in the middle of the day, when he started to experience significant tightness and feeling like he was smothering. That happened when he was at work. There was some diaphoresis. He felt exhausted. This went on for a couple of days and yesterday really got to the point where he could not function any longer. Came into the ER. They did a chest x-ray that showed no acute changes. ECG looks basically normal. ECG has been repeated at 1 p.m. today and 1:49 p.m. today and is normal. His troponins have been checked several times. They are all negative. His CPK is normal. ProBNP is normal. The patient's blood sugar has been not dramatically elevated. He is diabetic. He has been admitted for evaluation. At this time, he is not having any more complaints. PAST HISTORY: 1. Positive for severe coronary heart disease. Had a heart catheterization in July 2018 that showed a subtotal stenosis of the LAD which was successfully angioplastied by Dr. Berger. He achieved good perfusion of the distal LAD. The marginal-1 of the circumflex had a very tortuous stenosis of 60 to 70 percent, which he elected not to treat at that time. His echocardiogram from July 2018 showed moderate hypokinesis of the apex. Interestingly, during the heart catheterization, his ejection fraction appeared to be normal. 2. The patient has diabetes mellitus for many years. 3. The patient has hyperlipidemia. He has hypertension. SURGICAL HISTORY: 1. He has had cervical spine fusion a few years ago. 2. He has had tonsillectomy. 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 He is . He has children. He is not a smoker. FAMILY HISTORY: Positive for heart disease, coronary heart disease. HOME MEDICATIONS: At this time included: 1. Amlodipine 2.5 daily. 2. Farxiga 10 mg daily. 3. Insulin Glargine 60 units daily. 4. Lisinopril 20 daily. 5. Omeprazole 40 mg daily. 6. Paroxetine 20 mg daily. 7. Rosuvastatin 20 mg daily. 8. Semaglutide 1 unit subcu daily. 9. Janumet 50-500 twice a day. 10. Flomax 0.4 mg daily. 11. Brilinta 90 mg twice a day. 12. Tizanidine 4 mg daily. His home medications should include baby aspirin, but for some reason that is not listed. ALLERGIES: He is not allergic to medication. REVIEW OF SYSTEMS: Other than the aforementioned complaints, nothing new. Multiple systems were reviewed. PHYSICAL EXAMINATION: Vital Signs: Blood pressure 131/74, pulse 74, temperature 98.4 degrees, respirations 18. General: Awake, alert, oriented, in no distress. HEENT: Unremarkable. Chest: Sounds clear to auscultation and percussion. Heart: Sounds are regular and rhythmic. I do not hear a gallop or murmur. Abdomen: Obese, nontender. Extremities: Show good pulses. No peripheral edema. Neuro: Nonfocal. Moves all 4 extremities. LABORATORY: BUN and creatinine are normal. IMPRESSION: 1. Patient who presents with increasing dyspnea, chest discomfort. He has had a recent non-Q- wave myocardial infarction and a stent to the left anterior descending in July 2018. 2. Hypertension. 3. Diabetes mellitus type 2. 4. Hyperlipidemia. RECOMMENDATION: 1. We will obtain an echocardiogram now. 2. We will arrange for a stress test in the morning. 3. Further advice will be forthcoming. Thank you for the opportunity to participate in his evaluation. cc: Wilver Garrison MD
[2018-10-28] MEDS: PRILOSEC PO SCH (06:35)
[2018-10-28 07:39] LABS: AGAP 11; BUN 13 mg/dL (8-22); CALCIUM 8.7 mg/dL (8.8-10.2); CHLORIDE 103 mmol/L (98-107); COSMO 273; CREATININE 0.9 mg/dL (0.7-1.2); ESTIMATED GFR > 60; GLUCOSE 118 mg/dL (70-104); MAGNESIUM 1.9 mg/dL (1.5-2.7); POTASSIUM 4.3 mmol/L (3.5-5.1); SODIUM 136 mmol/L (136-145); TCO2 22 mmol/L (25-35)
--- NOTE | 2018-10-28 08:13 | EKG Report ---
Test Performed on : 10/28/2018 07:26:41 AM Test Reason : chest pain Blood Pressure : / mmHG Vent. Rate : 071 BPM Atrial Rate : 071 BPM P-R Int : 182 ms QRS Dur : 090 ms QT Int : 398 ms P-R-T Axes : 043 078 033 degrees QTc Int : 432 ms Normal sinus rhythm. Normal ECG When compared with ECG of 27-OCT-2018 13:49, No significant change was found Confirmed by Titus GARCIA, Aiden Maier ([id number]) on 10/28/2018 1:53:52 PM
[2018-10-28] MEDS ORDERED: LEXISCAN ONE (08:27)
--- NOTE | 2018-10-28 08:49 | ECHO REPORT ---
ORDER DATE: 10/27/2018 SUMMARY: 1. Complete two-dimensional and Doppler echo carotid study performed. Acoustic window quality is adequate. 2. Aortic valve is trileaflet and opens normally on 2-dimensional images. Peak gradient across the aortic valve is approximately 10 mmHg. Mitral, tricuspid, and pulmonic valves are without evidence of structural abnormality. There is trace mitral regurgitation and trace tricuspid regurgitation. Aortic root is normal in size. The proximal ascending aorta is mildly enlarged measuring 4.0 cm in diameter. 3. Normal left ventricular chamber size with borderline concentric left hypertrophy is demonstrated. Estimated left ventricular ejection fraction appears to be at least 70%. No regional wall motion abnormalities are evident. Doppler suggests grade 1 left ventricular diastolic dysfunction. Left atrium is upper normal in size. Right atrium and right ventricle are normal in size with grossly preserved right ventricular systolic function. 4. No pericardial effusion. 5. Inferior vena cava not well demonstrated. cc: MD Shilpi Lee PA MTDD
[2018-10-28] MEDS: FLOMAX PO SCH (10:39)
[2018-10-28] MEDS: GLUCOPHAGE PO SCH ×2 (10:39→16:26)
[2018-10-28] MEDS: NORVASC PO SCH (10:39)
[2018-10-28] MEDS: PAXIL PO SCH (10:40)
[2018-10-28] MEDS: BRILINTA PO SCH (10:40)
[2018-10-28] MEDS: ASPIRIN PO SCH (10:40)
[2018-10-28] MEDS: PRINIVIL PO SCH (10:41)
[2018-10-28] MEDS: NON-FORMULARY MED (Dapagliflozin Propanediol [Farxiga] 0 MG) PO SCH (10:42)
[2018-10-28] MEDS: TOUJEO SOLOSTAR SUBQ SCH (10:42)
[2018-10-28] MEDS: JANUVIA PO SCH ×2 (10:42→16:02)
--- NOTE | 2018-10-28 15:02 | Diag Imaging Result Document ---
PROCEDURE NAME: MYOCARDIAL PERF SCAN, STR/REST - 10/27/2018 INDICATION: Chest pain, history of recent [place]. PROCEDURES PERFORMED: 1. Walking Lexiscan stress. 2. One-day stress/rest myocardial perfusion imaging. PROCEDURE FINDINGS: LEXISCAN STRESS: 1. Baseline EKG shows sinus rhythm. 2. There is no clear evidence of ischemic changes. Patient in the middle of the walking Lexiscan reported that he had some dizziness, but there was no obvious chest pain occurring. PERFUSION IMAGING RESULTS: 1. No evidence of abnormal extracardiac uptake. 2. TID ratio is 1.09. 3. Perfusion imaging demonstrates a small to moderate size, mild intensity defect located in the inferior apical, mid inferior and basal inferior segments. This defect does have reversibility suggesting other ischemia or a possible shifting soft tissue attenuation. 4. Normal ejection fraction of 79% on rest, 78% on stress. The end-diastolic volume on stress is 94, end-systolic volume 20. Normal wall motion is noted. cc: MD Shilpi Taylor PA
[2018-10-28 15:22] VITALS: BP 144/76
--- NOTE | 2018-10-29 22:55 | DISCHARGE SUMMARY ---
ADMISSION DATE: 10/26/2018 DISCHARGE DATE: 10/28/2018 DISCHARGE DIAGNOSES: 1. Chest pain, resolved. 2. Hyperlipidemia. 3. Coronary artery disease. 4. Diabetes mellitus type 2. 5. Anxiety disorder. CONSULTATIONS: None. PROCEDURES: 1. Chest x-ray done on admission showed no evidence of acute disease. 2. CT of abdomen and pelvis showed mild constipation, retained gastric contents of uncertain significance. 3. Myocardial perfusion scan nuclear medicine showed no evidence of abnormal extracardiac uptake. Normal ejection fraction 79%. 4. Echocardiogram, limited view, shows an ejection fraction of 70%. No pericardial effusion. Trace mitral regurgitation. CONSULTATIONS: Dr. Garrison from Cardiology. HOSPITAL COURSE: In brief, this is a patient who came to the hospital complaining of abdominal discomfort, dyspnea, chest discomfort, and because of his history of previous [place] he was admitted to the hospital. Cardiac workup as mentioned above. Because all of his test returned normal, he was cleared from Cardiology standpoint, he is supposed to see his primary care cardiology, Dr. Howard, in the office in 4 weeks. DISCHARGE PHYSICAL EXAMINATION: Vital signs: Temperature 97.9 degrees, heart rate 98, respiratory rate 20, blood pressure 144/76, O2 saturation 99% on room air. General: This is a 52- year-old male, lying in bed, in no acute distress. Cardiovascular: S1, S2 heard. No murmurs, gallops, or rubs. Regular rate and rhythm. Respiratory: Clear bilaterally to auscultation. No work of breathing or using accessory muscles. Abdomen: Soft, nontender to palpation. Bowel sounds present. No organomegaly. Extremities: No clubbing, cyanosis, or edema. Peripheral pulses present in both legs. Neurological: The patient alert and oriented x3. Moves 4 extremities. DISCHARGE DISPOSITION: Home to self-care. DISCHARGE MEDICATIONS: We are not making any changes to his current medications. cc: Ford Garnica MD
== END 2018-10-28 18:47 | disposition home or self-care (01) ==
LOC: ED 13:50 → INTOOBSV 13:51 → SUATTDRO 10-27 00:15 → 4N 10-27 00:15
PROVIDERS: ATTEND Internal Medicine